=== PATIENT | male | born 1955 | race Asian ===

== ENCOUNTER 2018-10-02 16:37 | Emergency (ER) | payer SELFPAY ==
[~2018-10-02] VITALS: Ht 160 cm; Wt 52.6 kg
[2018-10-02 17:01] VITALS: Ht 160 cm; Wt 52.6 kg
[2018-10-02 17:47] LABS: BASOPHIL % 0.4 % (0-2); PLATELET COUNT 148 x10^3mcL (130-400)
[2018-10-02 17:49] LABS: RED CELL DISTRIBUTION WIDTH 14.6 % (11.5-14.5)
[2018-10-02 18:06] LABS: CALCIUM 9.1 mg/dL (8.5-10.1); CARBON DIOXIDE 25.9 mmol/L (21-32); CHLORIDE SERUM 108 mmol/L (98-107); GFR1 > 60 mL/min; GLUCOSE SERUM 138 mg/dL (74-106); POTASSIUM SERUM 4.1 mmol/L (3.5-5.1); SODIUM SERUM 143 mmol/L (136-145)
[2018-10-02 18:10] LABS: ALBUMIN 3.4 g/dL (3.4-5.0); ALKALINE PHOSPHATASE 53 U/L (46-116); ALT/SGPT 43 U/L (16-63); AST/SGOT 195 U/L (15-37); BILIRUBIN TOTAL 0.77 mg/dL (0.20-1.00); LIPASE 266 IU/L (73-393); TOTAL PROTEIN, SERUM 7.2 g/dL (6.4-8.2)
[2018-10-02 18:53] VITALS: BP 124/80
== END 2018-10-02 19:22 | disposition home or self-care (01) ==
LOC: ED 16:37
DX: R10.13 Epigastric pain (principal)
CPT/HCPCS: J2270; J2405; J3490; Q0092